=== PATIENT | female | born 1990 | race Caucasian/White ===

== ENCOUNTER 2017-11-11 20:02 | Emergency (ER) | payer MEDICAID ==
[~2017-11-11] VITALS: Ht 162.6 cm; Wt 78.5 kg
[2017-11-11 21:32] VITALS: BP 128/57
[2017-11-11] MEDS ORDERED: azithromycin 250mg tablet PO ONE (21:35)
[2017-11-11] MEDS ORDERED: CefTRIAXone 250MG IM Kit w/LIDOcaine IM ONE (21:35)
[2017-11-11 22:00] LABS: URINE HCG NEGATIVE (NEG)
[2017-11-11 22:17] LABS: URINE AMPHETAMINE SCREEN POSITIVE (Neg); URINE BARBITUATE SCREEN NEGATIVE (Neg); URINE BENZODIAZEPINES SCREEN NEGATIVE (Neg); URINE CANNABINOID SCREEN POSITIVE (Neg); URINE COCAINE SCREEN NEGATIVE (Neg); URINE METHADONE SCREEN NEGATIVE (Neg); URINE OPIATE SCREEN NEGATIVE (Neg); URINE PHENCYCLIDINE SCREEN NEGATIVE (Neg)
[2017-11-11 22:21] LABS: CLARITY,URINE CLOUDY (Clear); COLOR,URINE YELLOW (Yellow); GLUCOSE, URINE NEGATIVE (Neg); KETONES,URINE NEGATIVE (Neg); LEUKOCYTE ESTERASE ,URINE LARGE (Neg); NITRITES, URINE NEGATIVE (Neg); OCCULT BLOOD,URINE TRACE-INTACT (Neg); PROTEIN,URINE TRACE mg/dl (Neg); UROBILINOGEN,URINE 0.2 E.U/dL (0.2-1.0)
[2017-11-11 22:23] LABS: UA COLLECTION TYPE CLN CATCH MIDSTREAM
[2017-11-11 22:38] LABS: WBC,URINE 50-100 /HPF (0-4)
[2017-11-11 22:39] LABS: BACTERIA,URINE 2+ /HPF (Neg); MUCUS STRANDS MANY /LPF (Neg); SQUAMOUS EPITHELIAL CELL,UR MANY /LPF (FEW); TRICHOMONAS,URINE MOD /HPF (NEGATIVE)
== END 2017-11-11 23:04 | disposition home or self-care (01) ==
LOC: ER 20:03
DX: A64 Unspecified sexually transmitted disease (principal); M54.2 Cervicalgia; F15.10 Other stimulant abuse, uncomplicated
CPT/HCPCS: 36415; 80305; 81001; 81025; 87491; 87591; 96372; 99284; J0696

== ENCOUNTER 2021-07-19 08:08 | Emergency (ER) | payer MEDICAID ==
[~2021-07-19] VITALS: Ht 165.1 cm; Wt 72.7 kg
[2021-07-19 08:13] VITALS: BP 133/81
[2021-07-19] MEDS ORDERED: azithromycin 250mg tablet PO ONE (08:15)
[2021-07-19] MEDS ORDERED: CefTRIAXone 500MG IM Kit w/LIDOcaine IM ONE (08:15)
[2021-07-19 08:43] LABS: URINE HCG NEGATIVE (NEG)
[2021-07-19 09:21] LABS: UA COLLECTION TYPE VOIDED
[2021-07-19 09:22] LABS: CLARITY,URINE CLEAR (Clear); COLOR,URINE DARK YELLOW (Yellow); GLUCOSE, URINE NEGATIVE (Neg); KETONES,URINE NEGATIVE (Neg); NITRITES, URINE NEGATIVE (Neg); OCCULT BLOOD,URINE NEGATIVE (Neg); PROTEIN,URINE NEGATIVE (Neg)
[2021-07-19 09:23] LABS: LEUKOCYTE ESTERASE ,URINE NEGATIVE (Neg); UROBILINOGEN,URINE 0.2 E.U/dL (0.2-1.0)
== END 2021-07-19 09:22 | disposition home or self-care (01) ==
LOC: ER 08:08
DX: Z20.2 Contact with and (suspected) exposure to infections with a predominantly sexual mode of transmission (principal); R30.0 Dysuria; N93.9 Abnormal uterine and vaginal bleeding, unspecified; F15.90 Other stimulant use, unspecified, uncomplicated; F11.90 Opioid use, unspecified, uncomplicated
CPT/HCPCS: 36415; 81003; 81025; 87491; 87591; 96372; 99283; J0696

== ENCOUNTER 2022-01-06 19:13 | Emergency (ER) | payer MEDICAID ==
[~2022-01-06] VITALS: Ht 165.1 cm; Wt 72.7 kg
[2022-01-06 19:45] VITALS: BP 130/79
--- NOTE | 2022-01-06 19:50 | NUR ---
pt eating sandwhich during nurse interview, no visual sign of discomfort nor distress seen
[2022-01-06] MEDS ORDERED: HYDR-3965 PO (22:08)
== END 2022-01-06 22:21 | disposition home or self-care (01) ==
LOC: ER 19:14
DX: S02.5XXA Fracture of tooth (traumatic), initial encounter for closed fracture (principal); F15.90 Other stimulant use, unspecified, uncomplicated; F11.90 Opioid use, unspecified, uncomplicated; Z79.899 Other long term (current) drug therapy; X58.XXXA Exposure to other specified factors, initial encounter; Y93.89 Activity, other specified; Y92.89 Other specified places as the place of occurrence of the external cause; Y99.8 Other external cause status
CPT/HCPCS: 99283

== ENCOUNTER 2022-03-05 17:19 | Emergency (ER) | payer MEDICAID ==
[~2022-03-05] VITALS: Ht 165.1 cm; Wt 70.5 kg
[2022-03-05 19:12] VITALS: BP 113/73
== END 2022-03-05 19:19 | disposition home or self-care (01) ==
LOC: ER 17:20
DX: Z01.419 Encounter for gynecological examination (general) (routine) without abnormal findings (principal); F15.90 Other stimulant use, unspecified, uncomplicated; F11.90 Opioid use, unspecified, uncomplicated
CPT/HCPCS: 99284

== ENCOUNTER 2022-11-30 13:07 | Emergency (ER) | payer MEDICAID ==
[~2022-11-30] VITALS: Ht 165.1 cm; Wt 62.6 kg
[2022-11-30 19:10] VITALS: BP 118/14
== END 2022-11-30 19:53 | disposition left against medical advice (07) ==
LOC: ER 13:07
DX: R22.32 Localized swelling, mass and lump, left upper limb (principal); Z53.21 Procedure and treatment not carried out due to patient leaving prior to being seen by health care provider
CPT/HCPCS: 99281

== ENCOUNTER 2023-01-17 14:02 | Emergency (ER) | payer MEDICAID ==
[~2023-01-17] VITALS: Ht 165.1 cm; Wt 77.8 kg
[2023-01-17 14:35] VITALS: BP 123/71
== END 2023-01-17 16:55 | disposition home or self-care (01) ==
LOC: ER 14:02
DX: Z00.00 Encounter for general adult medical examination without abnormal findings (principal); F15.20 Other stimulant dependence, uncomplicated
CPT/HCPCS: 99281

== ENCOUNTER 2023-07-05 10:29 | Emergency (ER) | payer MEDICAID ==
[~2023-07-05] VITALS: Ht 165.1 cm; Wt 72.7 kg
[2023-07-05 11:00] VITALS: BP 130/70; PULSE 97; TEMP 97.4; O2SAT 99
[2023-07-05 12:55] VITALS: RESP 18
[2023-07-05] MEDS ORDERED: clindamycin 150mg capsule PO ONE (13:00)
[2023-07-05] MEDS ORDERED: AMOX-580 PO (13:07)
[2023-07-05] MEDS ORDERED: NAPR-56 PO (13:07)
[2023-07-05] MEDS ORDERED: amox tr/potassium clavulanate 875/125mg TAB PO ONE (13:10)
--- NOTE | 2023-07-05 17:47 | NUR ---
SOCIAL GROUP WORKER'S GEN ASSESSMENT REVIEWED BY JESSICA, RNC CS; APPROVED
== END 2023-07-05 13:18 | disposition home or self-care (01) ==
LOC: ER 10:30
DX: K04.7 Periapical abscess without sinus (principal); I10 Essential (primary) hypertension; F15.90 Other stimulant use, unspecified, uncomplicated; F11.90 Opioid use, unspecified, uncomplicated; Z79.2 Long term (current) use of antibiotics; Z79.899 Other long term (current) drug therapy
CPT/HCPCS: 99283